=== PATIENT | male | born 1965 | race Two or more races ===

== ENCOUNTER 2017-10-17 18:46 | Emergency (ER) | payer MEDICAID, OTHER ==
[~2017-10-17] VITALS: Ht 167.6 cm; Wt 82.6 kg
[2017-10-17] MEDS ORDERED: ASPirin 81 mg TAB PO ONE (19:30)
[2017-10-17 19:56] LABS: Basophils # (auto) 0.1 uL; Basophils % (auto) 0.8 % (0.0-2.0); Eosinophils # (auto) 0.2 uL; Eosinophils % (auto) 1.2 % (0.0-7.0); Hematocrit 44.9 % (41.0-53.0); Hemoglobin 15.5 g/dL (13.5-17.5); Lymphocytes # (auto) 3.3 uL; Lymphocytes % (auto) 25.9 % (10.0-50.0); Mean Corpuscular Hemoglobin 32.3 pg (28.0-32.0); Mean Corpuscular Hgb Conc. 34.6 g/dL (32.0-36.0); Mean Corpuscular Volume 93.3 fL (80.0-100.0); Monocytes # (auto) 1.3 uL; Monocytes % (auto) 10.2 % (0.0-12.0); Neutrophils # (auto) 7.8 uL; Neutrophils % (auto) 61.9 % (37.0-80.0); Nucleated Red Blood Cells % 0.1 %; Platelet Count (auto) 188 10^3/uL (140-450); Red Blood Cells 4.81 10^6/uL (4.5-5.90); Red Cell Distribution Width 13.2 % (11.8-14.3); White Blood Cell 12.6 10^3/uL (4.4-10.8)
[2017-10-17 20:13] LABS: Albumin 4.2 g/dL (3.4-5.0); BUN/Creatinine Ratio 11.5; Bilirubin, Total 0.6 mg/dL (0.2-1.0); Calcium 8.9 mg/dL (8.5-10.1); Potassium 3.5 mmol/L (3.5-5.1); Total Protein 8.6 g/dL (6.4-8.2)
[2017-10-17 22:11] VITALS: BP 144/96
== END 2017-10-17 22:19 | disposition home or self-care (01) ==
LOC: ER 18:46
DX: R07.89 Other chest pain (principal); R51 Headache
CPT/HCPCS: 36415; 71046; 80053; 84484; 85025; 93005; 94761